=== PATIENT | female | born 1960 ===

== ENCOUNTER 2023-12-19 06:19 | Inpatient (IN) | payer OTHER, SELFPAY ==
--- NOTE | 2023-04-20 10:40 | CM ---
Addendum entered by Elisabeth Coats 12/04/23 10:00:
Surgery date has been changed to 12/18.
Addendum entered by Elisabeth Coats 10/30/23 10:51:
Patient's surgery date has been changed to 12/05/23.
Addendum entered by Elisabeth Coats 08/29/23 10:58:
Patient's surgery date has changed to 10/03/23. Spoke with patient via telephone. Reintroduced role of Orthopedic Navigator and confirmed information previously obtained for case management assessment. Patient states that she now lives with her
filiu in a one floor. There are no steps to enter the building and then a flight of steps to her apartment. She is still using forearm crutches. Also discussed orthopedic program and post surgical plans. Reviewed anticipated length of stay and that
goal is for her to return home at discharge. Also reviewed outpatient PT. Patient is in agreement with tentative plan but not have transportation for outpatient PT and will need VN services. Her filiu works from home and will be able to provide
support.
Original Note:
Patient is scheduled for an elective R TKR on 05/23/23. Spoke with patient prior to surgery via telephone. Introduced role of Orthopedic Navigator. Patient reports that she currently lives with her daughter in a one story condo. There is a flight of
steps to enter. She currently functions independently and uses forearm crutches. She also has a rolling walker. She has never had VN services. PCP is Leonid Payne.
Discussed orthopedic program and post surgical plans. Reviewed anticipated length of stay and that goal is for her to return home at discharge. Also reviewed outpatient PT. Patient is in agreement with tentative plan but feels she will need VN. She
will have support from her fiance, Patrick, when she goes home. Patient is unsure if she will return to her daughter's home after surgery. She and her fiance are currently looking for a home to move to together.
Patient will complete online education.
Plan: Orthopedic Navigator will remain available to assist with the care of patient and will reassess discharge needs after surgery.
[2023-09-12 15:14] VITALS: BMI 42.4
[2023-09-12 15:15] VITALS: BMI 42.4
[2023-09-12 15:20] LABS: Hematocrit 33.9 % (37.0-47.0); Hemoglobin 10.5 g/dL (12.0-16.0); Mean Corpuscular Hgb 24.7 pg (27.0-31.0); Mean Corpuscular Volume 79.8 fL (81.0-99.0); Platelet Count 162 10^3/uL (130-400); Red Blood Cell Count 4.25 10^6/uL (4.20-5.40); Red Cell Dist. Width 15.7 % (11.5-14.5); White Blood Cell Count 9.5 10^3/uL (4.8-10.8)
[2023-09-12 15:41] LABS: ALT (SGPT) 28 U/L (0-35); AST (SGOT) 28 U/L (14-36); Albumin 3.6 g/dl (3.5-5.0); Alkaline Phosphatase 117 U/L (38-126); Blood Urea Nitrogen 23 mg/dl (7-17); Calcium 9.7 mg/dl (8.4-10.2); Carbon Dioxide 28 mmol/L (22-30); Chloride 103 mmol/L (98-107); Estimated Creatinine Clearance 71 ml/min; Glucose 220 mg/dl (70-99); Potassium 4.9 mmol/L (3.5-5.1); Sodium 136 mmol/L (135-145); Total Bilirubin 0.5 mg/dl (0.2-1.3); Total Protein 6.7 g/dl (6.3-8.2); eGFR > 60.00
[2023-09-12 16:27] LABS: Iron 59 ug/dl (37-170)
[2023-09-12 16:36] LABS: Percent Saturation 23 % (20-50); Total Iron Binding Capacity 256 ug/dl (265-497)
[2023-09-12 17:28] LABS: Ferritin 70.5 ng/ml (11.1-264.0)
[2023-09-12 17:43] LABS: Vitamin B12 249 pg/ml (239-931)
[2023-09-13 09:09] LABS: Glycohemoglobin (HgbA1c) 7.6 % (4.0-5.6)
[2023-11-12 13:52] VITALS: BMI 41.6
[2023-11-12 14:26] LABS: Hematocrit 33.7 % (37.0-47.0); Hemoglobin 10.6 g/dL (12.0-16.0); Mean Corp Hgb Conc. 31.5 g/dL (33.0-37.0); Mean Corpuscular Hgb 24.4 pg (27.0-31.0); Mean Corpuscular Volume 77.5 fL (81.0-99.0); Platelet Count 150 10^3/uL (130-400); Red Blood Cell Count 4.35 10^6/uL (4.20-5.40); Red Cell Dist. Width 16.9 % (11.5-14.5); White Blood Cell Count 7.8 10^3/uL (4.8-10.8)
[2023-11-12 15:01] VITALS: BMI 41.6
[2023-11-12 15:15] LABS: ALT (SGPT) 59 U/L (0-35); AST (SGOT) 59 U/L (14-36); Albumin 4.3 g/dl (3.5-5.0); Alkaline Phosphatase 149 U/L (38-126); Blood Urea Nitrogen 21 mg/dl (7-17); Calcium 9.5 mg/dl (8.4-10.2); Carbon Dioxide 25 mmol/L (22-30); Chloride 103 mmol/L (98-107); Estimated Creatinine Clearance 79 ml/min; Glucose 254 mg/dl (70-99); Potassium 4.4 mmol/L (3.5-5.1); Sodium 133 mmol/L (135-145); Total Bilirubin 0.5 mg/dl (0.2-1.3); Total Protein 7.4 g/dl (6.3-8.2); eGFR > 60.00
[2023-11-13 08:26] LABS: Glycohemoglobin (HgbA1c) 7.6 % (4.0-5.6)
--- NOTE | 2023-12-03 13:41 | PTCARENOTE ---
Pt called and reported being treated for URI, Mary Kay at [facility] office notified.
[2023-12-12 13:50] VITALS: BMI 42.3
[2023-12-12 14:19] LABS: Hematocrit 33.5 % (37.0-47.0); Hemoglobin 10.6 g/dL (12.0-16.0); Mean Corp Hgb Conc. 31.6 g/dL (33.0-37.0); Mean Corpuscular Hgb 24.6 pg (27.0-31.0); Mean Corpuscular Volume 77.7 fL (81.0-99.0); Platelet Count 175 10^3/uL (130-400); Red Blood Cell Count 4.31 10^6/uL (4.20-5.40); Red Cell Dist. Width 16.2 % (11.5-14.5); White Blood Cell Count 8.2 10^3/uL (4.8-10.8)
[2023-12-12 14:31] LABS: ALT (SGPT) 126 U/L (0-35); AST (SGOT) 116 U/L (14-36); Albumin 4.5 g/dl (3.5-5.0); Alkaline Phosphatase 150 U/L (38-126); Blood Urea Nitrogen 14 mg/dl (7-17); Carbon Dioxide 28 mmol/L (22-30); Chloride 103 mmol/L (98-107); Estimated Creatinine Clearance 78 ml/min; Glucose 85 mg/dl (70-99); Glycohemoglobin (HgbA1c) 7.6 % (4.0-5.6); Potassium 4.6 mmol/L (3.5-5.1); Sodium 137 mmol/L (135-145); Total Bilirubin 0.5 mg/dl (0.2-1.3); Total Protein 7.9 g/dl (6.3-8.2); eGFR > 60.00
--- NOTE | 2023-12-12 14:44 | HPS.HSE ---
Family Physician
-
Family Physician: Leonid Payne
Chief Complaint
-
Advanced primary osteoarthritis of the right knee.
History of Present Illness
The patient is a morbidly obese female presenting today for advanced primary osteoarthritis of the right knee. The patient reports significant right knee pain secondary to this diagnosis. She notes that her current right knee pain
is greatly interfering with her activities of daily living and is overall impacting her quality of life. She has tried and failed multiple conservative treatment measures in the past for her right knee pain. These conservative treatment measures
include physical therapy, self-directed therapeutic exercises, attempted weight loss, medical management with Tylenol and NSAIDs, injection therapy, bracing, and the application of ice and/or heat. Recent x-ray findings of the right knee
demonstrated end-stage osteoarthritis, 100% [id number] patellofemoral. She was determined to be in need of a right total knee arthroplasty. She denies any current complaints today such as chest pain, shortness of breath, palpitations, nausea,
vomiting, diarrhea, lightheadedness, dizziness, cough, sore throat, or fever.
Medical History
Past Medical History
Past Medical History: Reports Other
Additional Past Medical History:
1. Osteoarthritis, status post left total knee arthroplasty, 2003, at an outside facility.
2. 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
3. Infection of left total knee prosthesis, status post two-stage left total knee revision, 2004, at an outside facility.
4. Hypertension.
5. Right lower extremity DVT and pulmonary embolism, 2000, provoked.
6. Insulin-dependent diabetes, type 1, with neuropathy; A1c 7.6.
7. Previous GI bleed, secondary to Celebrex.
8. Ambulatory dysfunction.
9. Balance difficulties.
10. Spinal stenosis.
11. Multilevel degenerative disc disease.
12. Chronic pain syndrome.
13. Hypothyroidism.
14. Overactive bladder.
15. Chronic anemia.
16. Bilateral cataracts.
17. Insomnia.
18. Vitamin D deficiency.
19. Recent upper respiratory infection, resolved with Augmentin.
20. Elevated transaminases, improving on repeat testing.
21. Morbid obesity, BMI 42.2.
22. Recent history of tobacco abuse.
23. Cannabis dependence.
Past Surgical History: Reports Other
Additional Past Surgical History:
1. Left total knee arthroplasty, 2003, at an outside facility.
2. Revision of left total knee arthroplasty, 2003, an outside facility.
3. Two-stage revision of left total knee arthroplasty, 2004, at an outside facility.
4. Left knee arthroscopy x2.
5. Right knee arthroscopy x2.
6. Bilateral carpal tunnel release.
7. L4-L5 spinal fusion.
8. Cholecystectomy.
9. Uterine ablation.
10. Colonoscopy.
11. Endoscopy.
Social History
Tobacco: Former Smoker (She is a former half pack per day cigarette smoker who quit tobacco products altogether on October 15, 2023.)
Alcohol: None
Drug: Marijuana (Infrequent use reported due to insomnia. )
Living: Other (The patient lives in a 2nd floor condo with her fiance. She reports that her condo does not have an elevator and she does have 14 steps to enter into her condo.)
Family History
Family History: Not pertinent
Allergies / Home Medications
Allergy/Medication List:
MEDICATIONS:
1. Amlodipine 5 mg p.o. daily.
2. Hydrochlorothiazide 25 mg p.o. daily.
3. NovoLog U insulin pump.
4. NovoLog sliding scale as directed.
5. Levothyroxine 50 mcg p.o. daily.
6. Lisinopril 20 mg p.o. daily.
7. Milk Thistle 500 mg p.o. daily.
8. Mullein 1 tablet p.o. daily.
9. Oxycodone 10 mg p.o. 3 times a day.
10. Pregabalin 100 mg p.o. 3 times a day.
11. Gemtesa 75 mg p.o. daily.
12. Vitamin D2 50,000 units p.o. on Mondays.
13. Flonase 1 spray intranasal daily as needed.
ALLERGIES: Celebrex. Codeine.
Review of Systems
-
A 12 point ROS was completed and negative except as noted: Yes
Physical Exam
Vital Signs
Blood pressure 149/76. Heart rate 89. Respirations 18. Pulse ox 97%.
Height 5 feet, 4 inches. Weight 111.584 kg. BMI 42.2.
Physical Exam
General: Well Developed, Well Nourished and No Apparent Distress
HEENT: NormoCephalic, Moist mucous membranes, Atraumatic and PERRLA
Respiratory: Clear
Cardiac: Regular Rhythm
GI: Soft, Non Tender, Non Distended and Other (Morbidly obese. )
Musculoskeletal: Other (Trace non-pitting edema of bilateral lower extremities. No calf tenderness. She ambulates with double [place] crutches. Her gait pattern is extremely antalgic through the right lower extremity. There is positive right knee
effusion, positive warmth. Severe crepitus on active motion. ROM 5-90. )
Skin: Warm and Dry
Neuro: AO x 3 and Nonfocal/grossly intact
Laboratory Results
-
12/12/23 13:48
12/12/23 13:48
Laboratory Results
Total Bilirubin 0.5 mg/dl (0.2-1.3) 12/12/23 13:48
AST 116 U/L (14-36) H 12/12/23 13:48
ALT 126 U/L (0-35) H 12/12/23 13:48
Alkaline Phosphatase 150 U/L (38-126) H 12/12/23 13:48
Hemoglobin A1c 7.6.
MRSA screen negative.
DIAGNOSTIC STUDIES as of 12/14/2023: AST 70. ALT 100.
EKG 10/03/2023: Normal sinus rhythm.
Impression/Plan
-
CLEARANCES:
1. Primary Medical, Dr. Leonid Payne - cleared.
Primary medical phone number: [phone].
2. Dental - cleared.
IMPRESSION/PLAN:
1. Advanced primary osteoarthritis of the right knee in need of a right total knee arthroplasty by Dr. Taco Busch on 12/19/2023. The benefits and risks of the procedure have been explained to the patient. The patient understands these risks and
wishes to proceed.
2. DVT prophylaxis: Eliquis with bilateral venous compression devices. We will utilize Eliquis 2.5 mg p.o. twice a day as a prophylactic measure for four weeks post-operatively due to her history of right lower extremity DVT and pulmonary embolism,
as well as additional risk factors for clotting, which include morbid obesity and prolonged immobility in the setting of orthopedic surgery. Plasma flow devices were also highly encouraged to be purchased for use in the outpatient setting.
3. Chronic anemia: The patient's kidney function, iron stores, as well as vitamin B12 were all previously noted to be in range. We will monitor her hemoglobin closely during admission.
4. Chronic pain syndrome: The patient's pre certification specialist has decreased her opioid pre-operatively. Post-operatively, we will use extended-release Morphine Sulfate at a tapered dose. We will also include Oxycodone 15 mg p.o. every 4 hours
as needed for moderate to severe breakthrough pain. The patient was advised to continue her home Lyrica betsy-operatively. Pain medications will be adjusted if indicated.
5. Insulin dependent diabetes: The patient was advised to see her graphic user interface designer, Dr. Nadir Mora, prior to her procedure for management of her diabetes. His notes have been scanned into [employer]. We will consult the diabetic nurse practitioner
post-operatively for guidance in managing her insulin pump.
6. Elevated transaminases: The patient did report that she was on multiple new medications recently for an upper respiratory infection. Thankfully, her infection has resolved but her liver function tests on 12/12/2023 were noted to be elevated in
comparison to previous labs. A repeat hepatic function panel on 12/14/2023 did demonstrate gradual improvement. She can proceed as planned per her surgeon. We will minimize hepatotoxins such as Tylenol post-surgery.
7. Increased infection risk: The patient is considered to be at an increased risk of post-operative infection due to her history of insulin-dependent diabetes. Because of this, she will be prescribed Cefadroxil 500 mg p.o. twice a day for one week
post-operatively upon discharge. Probiotic use will be highly encouraged while on this antibiotic.
Patient's phone number: [phone].
Patient's contact (Patrick Marmolejo - Significant other): [phone].
[2023-12-12 15:51] VITALS: BMI 42.3
[2023-12-14 12:10] LABS: ALT (SGPT) 100 U/L (0-35); AST (SGOT) 70 U/L (14-36); Albumin 4.2 g/dl (3.5-5.0); Alkaline Phosphatase 149 U/L (38-126); Direct Bilirubin 0.4 mg/dl (0.0-0.4); Total Bilirubin 0.5 mg/dl (0.2-1.3); Total Protein 7.4 g/dl (6.3-8.2)
[2023-12-19 08:15] VITALS: BP 150/64
[2023-12-19 08:42] VITALS: BMI 42.3
[2023-12-19] MEDS: NORMOSOL-R 1000 IV (09:02)
[2023-12-19] MEDS: TYLENOL 650 MG PO (09:02)
[2023-12-19 09:05] LABS: Glucose - Point of Care 290 mg/dl (70-99)
[2023-12-19] MEDS: BACTROBAN NASAL 1 GRAM NASAL (09:08)
[2023-12-19] MEDS: NOVOLOG vial 2 UNITS SC (09:09)
[2023-12-19 10:15] LABS: Glucose - Point of Care 334 mg/dl (70-99)
== END 2023-12-19 10:27 | disposition home or self-care (01) | DRG 554 ==
LOC: AMOS 06:19
PROVIDERS: ADMITTING PHYSICIAN Orthopaedic Surgery; FAMILY PHYSICIAN Internal Medicine; REFERRING PHYSICIAN Physician Assistant
DX: M17.11 Unilateral primary osteoarthritis, right knee (principal); Z68.41 Body mass index [BMI] 40.0-44.9, adult; E87.1 Hypo-osmolality and hyponatremia; E66.01 Morbid (severe) obesity due to excess calories; I10 Essential (primary) hypertension; E10.36 Type 1 diabetes mellitus with diabetic cataract; E10.40 Type 1 diabetes mellitus with diabetic neuropathy, unspecified; E03.9 Hypothyroidism, unspecified; D64.9 Anemia, unspecified; G89.4 Chronic pain syndrome; N32.81 Overactive bladder; G47.00 Insomnia, unspecified; E55.9 Vitamin D deficiency, unspecified; R74.01 Elevation of levels of liver transaminase levels; F12.20 Cannabis dependence, uncomplicated; M48.00 Spinal stenosis, site unspecified; Z53.09 Procedure and treatment not carried out because of other contraindication; Z96.652 Presence of left artificial knee joint; Z79.890 Hormone replacement therapy; Z87.891 Personal history of nicotine dependence; Z86.718 Personal history of other venous thrombosis and embolism; Z86.711 Personal history of pulmonary embolism; Z87.19 Personal history of other diseases of the digestive system; Z79.1 Long term (current) use of non-steroidal anti-inflammatories (NSAID); Z79.4 Long term (current) use of insulin; Z79.891 Long term (current) use of opiate analgesic
CPT/HCPCS: 36415; 80053; 80076; 82607; 82728; 82962; 83036; 83540; 83550; 85027; 86850; 86900; 86901; 87070; 93005

== ENCOUNTER 2024-04-02 06:06 | Inpatient (IN) | payer OTHER, SELFPAY ==
--- NOTE | 2024-02-26 10:58 | CM ---
Patient is scheduled for an elective R TKR on 04/02/24. Spoke with patient prior to surgery via telephone. Introduced role of Orthopedic Navigator. Patient reports that she currently lives with her fiance a one story apartment. There are no steps to
enter the building and then a flight of steps to her apartment. She currently requires assistance with putting on her left shoe but otherwise functions independently. She uses a rolling walker inside and forearm crutches outside. She has no other
DME. She has never had VN services. PCP is Leonid Payne.
Discussed orthopedic program and post surgical plans. Reviewed anticipated length of stay and that goal is for her to return home at discharge. Also reviewed outpatient PT. Patient is in agreement with tentative plan but feels she will need VN.
Options and PAC data reviewed; she selects [facility]. She will have support from her fiance when she goes home. Patient is unsure if she will return to her daughter's home after surgery.
Patient will complete online education.
Plan: Orthopedic Navigator will remain available to assist with the care of patient and will reassess discharge needs after surgery.
[2024-03-10 14:20] VITALS: BMI 43.2
[2024-03-10 15:11] LABS: ALT (SGPT) 55 U/L (0-35); AST (SGOT) 51 U/L (14-36); Albumin 4.4 g/dl (3.5-5.0); Alkaline Phosphatase 139 U/L (38-126); Blood Urea Nitrogen 19 mg/dl (7-17); Calcium 9.4 mg/dl (8.4-10.2); Carbon Dioxide 25 mmol/L (22-30); Chloride 100 mmol/L (98-107); Estimated Creatinine Clearance 71 ml/min; Glucose 288 mg/dl (70-99); Potassium 4.8 mmol/L (3.5-5.1); Sodium 135 mmol/L (135-145); Total Bilirubin 0.5 mg/dl (0.2-1.3); Total Protein 7.3 g/dl (6.3-8.2); eGFR > 60.00
[2024-03-10 16:23] LABS: Hematocrit 34.6 % (37.0-47.0); Hemoglobin 10.7 g/dL (12.0-16.0); Mean Corp Hgb Conc. 30.9 g/dL (33.0-37.0); Mean Corpuscular Hgb 24.3 pg (27.0-31.0); Mean Corpuscular Volume 78.6 fL (81.0-99.0); Platelet Count 183 10^3/uL (130-400); Red Cell Dist. Width 16.5 % (11.5-14.5); White Blood Cell Count 8.7 10^3/uL (4.8-10.8)
[2024-03-11 09:41] LABS: Glycohemoglobin (HgbA1c) 6.9 % (4.0-5.6)
--- NOTE | 2024-03-12 13:52 | PTCARENOTE ---
Abn ECG, Dr. Porter notified, no new requests.
[2024-03-28 09:37] VITALS: BMI 43.2
--- NOTE | 2024-03-28 10:02 | PTCARENOTE ---
Patients 03/10 glucose 288- LMOM for Andrzej @ Dr. Jaci davila
[2024-04-02] VITALS (16 sets, daily range): BP systolic 119–185; BP diastolic 49–77; PULSE 56; O2SAT 99; BMI 43.2
[2024-04-02 06:34] LABS: Glucose - Point of Care 115 mg/dl (70-99)
[2024-04-02] MEDS: NORMOSOL-R 1000 IV ×2 (06:35→09:14)
[2024-04-02] MEDS: TYLENOL 650 MG PO ×4 (06:38→20:28)
[2024-04-02 08:14] LABS: Glucose - Point of Care 100 mg/dl (70-99)
--- NOTE | 2024-04-02 08:45 | W.DS.TRANS ---
DC Summary - Business Relations Manager
-
Discharge Instructions:
Sleep Apnea Risk Intermediate
Discharge Diagnosis/Procedures Jo-Ann MCDON[address]D Dr 04/02/24
Diet Diabetic, Carb Controlled
Activity With Walker
Driving Restrictions No driving
Other Services PT,VN
Instructions:
Stand-Alone Forms:
Changes to Home Medications: Yes
Discharge Medications:
DC Medications w/original date entered in [employer]
hydrochlorothiazide 25 mg tablet 25 mg PO DAILY 09/06/23
levothyroxine 50 mcg tablet (Synthroid) 50 mcg PO DAILY 09/06/23
lisinopril 20 mg tablet 20 mg PO DAILY 09/06/23
milk thistle 500 mg capsule 500 mg PO DAILY 09/06/23
pregabalin 100 mg capsule (Lyrica) 100 mg PO TID 09/06/23
vibegron 75 mg tablet (Gemtesa) 75 mg PO DAILY 09/06/23
Vitamin D2 50,000 unit PO WE 11/07/23
amlodipine 5 mg tablet 5 mg PO DAILY 11/12/23
fluticasone propionate 50 mcg/actuation nasal spray,suspension 1 spray intranasal DAILY PRN nasal congestion 12/12/23
insulin pump syringe 03/26/24
mupirocin 2 % topical ointment 1 applic topical BID 03/26/24
Saccharomyces boulardii 250 mg capsule (Florastor) 250 mg PO BID #1 cap 04/02/24
acetaminophen 325 mg capsule (Tylenol) 650 mg (2 x 325 mg) PO QID #2 caps 04/02/24
apixaban 2.5 mg tablet (Eliquis) 2.5 mg PO BID Blood clot prevention/tx #60 tabs 04/02/24
cefadroxil 500 mg capsule 500 mg PO BID infection prevention #14 caps 04/02/24
docusate sodium 100 mg capsule (Colace) 100 mg PO BID stool softner #1 cap 04/02/24
magnesium hydroxide 400 mg/5 mL oral suspension (Milk of Magnesia) 30 ml PO HS PRN Constipation #1 mL 04/02/24
morphine 15 mg tablet,extended release 15 mg PO Q12 pain #15 tabs 04/02/24
ondansetron 4 mg disintegrating tablet 4 mg PO Q6H PRN n/v #20 tabs 04/02/24
oxycodone 5 mg tablet 15 mg (3 x 5 mg) PO Q6HPRN PRN moderate-severe pain #30 tabs 04/02/24
pantoprazole 40 mg tablet,delayed release (Protonix) 40 mg PO DAILY #30 tabs 04/02/24
sennosides 8.6 mg tablet (Senokot) 17.2 mg (2 x 8.6 mg) PO BID laxative #2 tabs 04/02/24
Home Medication Changes
apixaban 2.5 mg tablet (Eliquis) 2.5 mg PO BID Blood clot prevention/tx #60 tabs 04/02/24
cefadroxil 500 mg capsule 500 mg PO BID infection prevention #14 caps 04/02/24
morphine 15 mg tablet,extended release 15 mg PO Q12 pain #15 tabs 04/02/24
ondansetron 4 mg disintegrating tablet 4 mg PO Q6H PRN n/v #20 tabs 04/02/24
oxycodone 5 mg tablet 15 mg (3 x 5 mg) PO Q6HPRN PRN moderate-severe pain #30 tabs 04/02/24
pantoprazole 40 mg tablet,delayed release (Protonix) 40 mg PO DAILY #30 tabs 04/02/24
Pending Results: No
[2024-04-02] MEDS: ROXICODONE 15 MG PO ×3 (09:59→21:53)
[2024-04-02] MEDS: ORETIC PO (11:53)
[2024-04-02 13:13] LABS: Glucose - Point of Care 278 mg/dl (70-99)
[2024-04-02] MEDS: MS CONTIN (EXTENDED RELEASE) PO (13:17)
[2024-04-02] MEDS: ROXICODONE 10 MG PO (13:29)
--- NOTE | 2024-04-02 15:00 | PTCARENOTE ---
Patient c/o headache, BP 177/92. Oretic given. Patient OOb with assist and walker to bathroom. Patient voided without difficulty. Patient tolerted 100% of lunch tray. Patient has implanted insulin pump and glucose meter. Patient's insulin pump
automatically delivers bolus dose based on her glucose meter. PA made aware, order obtained for patient to use her own pump and glucose meter.
[2024-04-02] MEDS: ORETIC 25 MG PO (15:43)
[2024-04-02] MEDS: LYRICA 200 MG PO ×2 (17:15→21:53)
[2024-04-02] MEDS: ANCEF 5 IV ×2 (17:16→23:56)
[2024-04-02 17:32] LABS: Glucose - Point of Care 348 mg/dl (70-99)
[2024-04-02] MEDS: ELIQUIS 2.5 MG PO (20:29)
[2024-04-02] MEDS: SENOKOT 17.2 MG PO (20:29)
[2024-04-02] MEDS: BACTROBAN 2% OINTMENT 1 APPLIC NASAL (20:29)
[2024-04-02] MEDS: MS CONTIN (EXTENDED RELEASE) 15 MG PO (20:29)
[2024-04-02] MEDS: COLACE 100 MG PO (20:29)
[2024-04-02 21:19] LABS: Glucose - Point of Care 304 mg/dl (70-99)
[2024-04-02] MEDS: PROTONIX 40 MG PO (21:53)
[2024-04-02] MEDS: PT'S OWN INSULIN PUMP - NovoLOG 10.9 UNIT SC (22:25)
[2024-04-03] MEDS: TYLENOL PO (00:25)
[2024-04-03] MEDS: ROXICODONE 15 MG PO ×3 (01:56→11:43)
[2024-04-03] MEDS: TYLENOL 650 MG PO ×3 (04:09→11:42)
[2024-04-03] MEDS: SYNTHROID 50 MCG PO (04:13)
[2024-04-03 07:24] LABS: Glucose - Point of Care 160 mg/dl (70-99)
[2024-04-03] MEDS: NON-FORMULARY ITEM 75 MG PO (07:36)
[2024-04-03 07:39] VITALS: BP 161/81
--- NOTE | 2024-04-03 08:08 | CM ---
Addendum entered by Elisabeth Coats 04/03/24 10:28:
Per recommendation of OT, home OT added to VN referral.
Original Note:
Reviewed chart and held rounds with PT, OT and nursing. Patient admitted as planned for elective R TKR. Met with patient at bedside. Confirmed information previously obtained for assessment. Also discussed discharge plans. The plan is for patient to
return home at discharge. She will have support from her fiance when she goes home. Reviewed VN services including start of care (tentatively 04/04), services to be ordered (PT, SN) and frequency/duration of services. Options list provided and PAC
data reviewed. Patient selects VN.
Patient has a rolling walker, forearm crutches, raised toilet seat with rails and a cane at home.
VN referral was completed and sent to [facility] through [employer] with request for start of care on 04/04. Confirmation received of their ability to accept case. stock clerk to fax discharge instructions to [facility] when complete.
[2024-04-03] MEDS: PT'S OWN INSULIN PUMP - NovoLOG 6 UNIT SC (08:24)
[2024-04-03] MEDS: SENOKOT 17.2 MG PO (08:25)
[2024-04-03] MEDS: BACTROBAN 2% OINTMENT 1 APPLIC NASAL (08:26)
[2024-04-03] MEDS: COLACE 100 MG PO (08:26)
[2024-04-03] MEDS: LYRICA 200 MG PO (08:26)
[2024-04-03] MEDS: ELIQUIS 2.5 MG PO (08:27)
[2024-04-03] MEDS: ORETIC 25 MG PO (08:27)
[2024-04-03] MEDS: NORVASC 5 MG PO (08:28)
[2024-04-03] MEDS: MS CONTIN (EXTENDED RELEASE) 15 MG PO (08:28)
--- NOTE | 2024-04-03 10:23 | W.PN.ORTHO ---
Today's Communication / Plan
-
d/c
Assessment
.
Distal Motor Intact: Yes
Dressing:
Clean, dry and intact.
Plan
.
Surgery / Date: Jo-Ann MCDONALD Dr 04/02/24
DVT Prophylaxis: Other (Eliquis + SCD device advised)
Activity:
Out of bed.
PT/OT
Discharge Plan: Home w/ VN
Subjective
.
.:
Patient resting comfortably.
Vital Signs and Labs
.
Vital Signs and Labs:
Lab Results
03/10/24 14:06
03/10/24 14:06
Temp Pulse Resp BP Pulse Ox
98.6 F 95 19 161/84 97
04/03/24 07:39 04/03/24 07:39 04/03/24 07:39 04/03/24 08:28 04/03/24 07:39
Physical Exam
-
HEENT: No pallor, cyanosis, or jaundice. Throat clear.
NECK: Supple. No JVD.
RESPIRATORY: Lungs clear to auscultation.
CVS: S1, S2 normal. RRR.� No murmur, rub or gallop.
ABDOMEN: Soft, non-tender. No distension. BS+/normal.
EXTREMITIES: strength equal, no calf pain with palpation
YARD WAREHOUSE WORKER: AOx3. No focal deficits. padder grossly intact
--- NOTE | 2024-04-03 11:06 | PN.DE.MGMTRT ---
Insulin Management
- -
04/03/2024 Insulin pump Note
Patient s/p R knee replacement doing well. Patient using Medtronic insulin pump 780G with Guardian sensor. Follows with Dr. Nadir Mora endocrine. Pump settings as follows:
basal I:CHO Sensitivity Target
12am 3 7 15 100
11am 2.9 7 15 100
12pm 3.3 7 15 100
10:30pm 3.1 7 15 100
24 hour basal total 75.2
active insulin 2 hours.
Patient is awake alert and oriented able to discuss diabetes management, at bedside supportive.
Patient is managing pump without difficulty, for discharge. To continue current pump settings.
Diabetes History
- -
Type of Diabetes: 2 requiring insulin
Pre-Admission Diabetes Regimen
Lab Results
Hemoglobin A1c 6.9 % (4.0-5.6) H 03/10/24 14:06
Insulin Pump Settings
IP Diabetes Regimen
04/02/24 04/02/24 04/02/24
13:12 17:31 21:18
POC Glucose 278 H 348 H 304 H
04/03/24
07:24
POC Glucose 160 H
Meal type: Breakfast
Amount consumed: 100%
Patient Education
[2024-04-03 11:09] VITALS: BP 107/74
[2024-04-03 11:53] VITALS: BP 107/74; BP 177/79; PULSE 90; O2SAT 98
== END 2024-04-03 12:52 | disposition home health service (06) | DRG 470 ==
LOC: 2 SOUTH 06:06
PROVIDERS: ADMITTING PHYSICIAN Orthopaedic Surgery; FAMILY PHYSICIAN Internal Medicine
PROC: 0SRC0J9 Replacement of Right Knee Joint with Synthetic Substitute, Cemented, Open Approach (ICD-10-PCS; 2024-04-02)
DX: M17.11 Unilateral primary osteoarthritis, right knee (principal); Z68.41 Body mass index [BMI] 40.0-44.9, adult; R26.2 Difficulty in walking, not elsewhere classified; E11.40 Type 2 diabetes mellitus with diabetic neuropathy, unspecified; E03.9 Hypothyroidism, unspecified; I12.9 Hypertensive chronic kidney disease with stage 1 through stage 4 chronic kidney disease, or unspecified chronic kidney disease; E11.22 Type 2 diabetes mellitus with diabetic chronic kidney disease; N18.31 Chronic kidney disease, stage 3a; E66.01 Morbid (severe) obesity due to excess calories; Z88.6 Allergy status to analgesic agent; Z88.5 Allergy status to narcotic agent; Z86.711 Personal history of pulmonary embolism; Z86.718 Personal history of other venous thrombosis and embolism; Z87.891 Personal history of nicotine dependence; Z79.890 Hormone replacement therapy
CPT/HCPCS: 36415; 73560; 80053; 82962; 83036; 85027; 86850; 86900; 86901; 87070; 93005; 97110; 97116; 97163; 97166; 97530; 97535; C1713; C1776